=== PATIENT | male | born 1950 | race Caucasian/White ===

== ENCOUNTER 2019-05-22 00:27 | Emergency (ER) | payer OTHER ==
[2019-05-22] MEDS: HYDROCODONE/APAP (5/325) TAB PO (00:50)
== END 2019-05-22 10:40 | disposition home or self-care (01) ==
LOC: E/R 00:27
DX: S39.92XA Unspecified injury of lower back, initial encounter (principal); I10 Essential (primary) hypertension; E11.9 Type 2 diabetes mellitus without complications; W06.XXXA Fall from bed, initial encounter; Y92.9 Unspecified place or not applicable; Z79.82 Long term (current) use of aspirin
CPT/HCPCS: 72100; 73502; 73510; 99284-25